=== PATIENT | male | born 1985 | race African-American/Black ===

== ENCOUNTER 2017-03-23 16:47 | Emergency (ER) | payer MEDICAID ==
[~2017-03-23] VITALS: Ht 172.7 cm; Wt 69.0 kg
[2017-03-23 17:58] VITALS: BP 145/100
== END 2017-03-23 18:54 | disposition left against medical advice (07) ==
LOC: ER 18:42
DX: Z53.21 Procedure and treatment not carried out due to patient leaving prior to being seen by health care provider (principal)